=== PATIENT | female | born 1945 | race Asian ===

== ENCOUNTER 2016-12-08 19:37 | Emergency (ER) | payer OTHER ==
[2016-12-08] MEDS ORDERED: ASPIRIN 81 MG CHEWABLE TAB ONE (19:51)
--- NOTE | 2016-12-08 19:51 | CPEKG ---
Heart Rate: 98 RR Interval: 612 P-R Interval: 176 QRSD Interval: 90 QT Interval: 348 QTC Interval: 445 P Henry: 61 QRS Henry: -29 T Wave Henry: 44 EKG Severity - OTHERWISE NORMAL ECG - EKG Impression: SINUS RHYTHM EKG Impression: VENTRICULAR PREMATURE COMPLEX EKG Impression: BORDERLINE LEFT AXIS DEVIATION Electronically Signed By: Rick Porter 08-Dec-2016 22:51:43
[2016-12-08] MEDS ORDERED: ASPIRIN 81 MG CHEWABLE TAB PO ONE (19:55)
[2016-12-08] MEDS ORDERED: NS 500 ML IV ONE (20:14)
--- NOTE | 2016-12-08 20:17 | EDPHY ---
H & P Stated Complaint: CHEST AND BACK PAIN FOR PAST 1 HR AND 1 WEEK Time Seen by Provider: 12/08/16 19:53 - Personal History Current Tetanus/Diphtheria Vaccine: Unsure Current Tetanus Diphtheria and Acellular Pertussis (TDAP): Unsure - Medical/Surgical History Hx Asthma: No Hx Chronic Respiratory Disease: No Hx Diabetes: No Hx Cardiac Disease: No Hx Renal Disease: No Hx Cirrhosis: No Hx Alcoholism: No Hx HIV/AIDS: No Hx Splenectomy or Spleen Trauma: No Other PMH: ACID REFLUX, - Social History Smoking Status: Never smoked Constitutional: Initial Vital Signs Temperature (C) 36.5 C 12/08/16 19:39 Heart Rate 108 H 12/08/16 19:39 Respiratory Rate 18 12/08/16 19:39 Blood Pressure 145/118 H 12/08/16 19:39 O2 Sat (%) 95 12/08/16 19:39 O2 Delivery Mode Room Air Allergies/Adverse Reactions: No Known Allergies Allergy (Unverified 12/08/16 19:43) Home Medications: Medication Instructions Recorded Aspirin [Aspirin 81mg] 81 mg PO DAILY 10/04/11 Atorvastatin Calcium [Lipitor 10 mg PO DAILY 10/04/11 mg] Fish Oil/Dha/Epa 10/04/11 Medical Decision Making ED Course/Re-evaluation: CHIEF COMPLAINT: Abdominal pain, back pain, dizziness HISTORY OF PRESENT ILLNESS: The patient is a 71 y/o female complaining of episodic burning abdominal pain with associated chest and back pain onset 17:00 tonight. She reports intermittent abdominal pain and back pain for the last several weeks as well as dizziness. Since onset tonight her pain has since faded in intensity but is still present. She has a possible history of heart attack or anxiety, it is unclear which. She reports her dizziness is aggravated by reading and she has been evaluated by her pediatric associate for it. She describes extreme room-spinning dizziness when standing in the morning that causes vomiting. REVIEW OF SYSTEMS: A 10 point review of systems was performed and is negative with the exception of the elements mentioned in the history of present illness. PHYSICAL EXAM: General Appearance: Alert, well hydrated, appropriate, and non-toxic appearing. Head: Atraumatic without scalp tenderness or obvious injury Eyes: Pupils equal, round, reactive to light and accommodation, EOMI, no trauma , no injection. Ears: Clear bilaterally, no perforation, normal landmarks Nose: Atraumatic, no rhinorrhea, clear. Throat: There is no erythema or exudates, no lesions, normal tonsils, mucus membranes moist. Neck: Supple, 2+ carotid upstroke, non-tender, no lymphadenopathy. Respiratory: No retractions, no distress, no wheezes, and no accessory muscle use. Lungs are clear to auscultation bilaterally. Cardiovascular: Regular rate and rhythm, no murmurs, rubs, or gallops. Bilateral carotid, radial, dorsalis pedis, and posterior tibial pulses intact. Good capillary refill all extremities. Gastrointestinal: Abdomen is soft, non-tender, non-distended, no masses, no rebound, no guarding, no peritoneal signs. Musculoskeletal: Normal active ROM of all extremities, atraumatic. Neurological: Alert, appropriate, and interactive. The patient has normal DTRs and non-focal cranial nerves, motor, sensory, and cerebellar exam. Skin: No rashes, good turgor, no nodules on palpation. 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 DIAGNOSTICS/PROCEDURES/CRITICAL CARE TIME: The 12 lead EKG was interpreted by myself. EKG shows sinus rhythm rate 98 and PVC. See hard copy and/or "tracemaster" electronic copy for interpretation. Study: MRI of the: Brain Indication: Neurologic Results: MRI scan of the brain was obtained. The results of the study are negative. The study was read by the radiologist, Dr. Ramachandran. I viewed the images myself on the PACS system. DIFFERENTIAL DIAGNOSIS: The differential diagnosis for the patient's chest pain included but was not limited to myocardial ischemia, pulmonary embolus, chest wall pain, pleural inflammation, and pulmonary infectious causes. MEDICAL DECISION MAKING: There is some difficulty understanding the patient due to a strong accent, but it sounds like she is describing room-spinning dizziness in the morning that causes vomiting and abdominal pain and possibly near syncope. She describes several of these events since October, but has only been evaluated by her pediatric associate so far for the dizziness. She has not had a brain MRI recently. Plan for EKG, IV, labs including troponin, and brain MRI. Labs are unremarkable. MRI pending. MRI is negative. Discussed these results with the patient. She will be discharged home with referral to her PCP for follow up. She is comfortable with this plan. Return precautions given. - Data Points Laboratory Results: Laboratory Results 12/08/16 19:50 12/08/16 19:50 12/08/16 19:50 WBC 6.41 10^3/uL (3.80-9.50) RBC 4.71 10^6/uL (4.18-5.33) Hgb 14.0 g/dL (12.6-16.3) Hct 41.4 % (38.0-47.0) MCV 87.9 fL (81.5-99.8) MCH 29.7 pg (27.9-34.1) MCHC 33.8 g/dL (32.4-36.7) RDW 13.9 % (11.5-15.2) Plt Count 262 10^3/uL (150-400) MPV 9.3 fL (8.7-11.7) Neut % (Auto) 59.5 % (39.3-74.2) Lymph % (Auto) 29.8 % (15.0-45.0) [place] % (Auto) 8.1 % (4.5-13.0) Eos % (Auto) 2.0 % (0.6-7.6) Baso % (Auto) 0.3 % (0.3-1.7) Nucleat RBC Rel Count 0.0 % (0.0-0.2) Absolute Neuts (auto) 3.81 10^3/uL (1.70-6.50) Absolute Lymphs (auto) 1.91 10^3/uL (1.00-3.00) Absolute Monos (auto) 0.52 10^3/uL (0.30-0.80) Absolute Eos (auto) 0.13 10^3/uL (0.03-0.40) Absolute Basos (auto) 0.02 10^3/uL (0.02-0.10) Absolute Nucleated RBC 0.00 10^3/uL (0-0.01) Immature Gran % 0.3 % (0.0-1.1) Immature Gran # 0.02 10^3/uL (0.00-0.10) Sodium 141 mEq/L (134-144) Potassium 3.8 mEq/L (3.5-5.2) Chloride 106 mEq/L (97-110) Carbon Dioxide 22 mEq/l (22-31) Anion Gap 13 mEq/L (8-16) BUN 18 mg/dL (7-23) Creatinine 0.7 mg/dL (0.6-1.0) Estimated GFR > 60 Glucose 124 H mg/dL (70-100) Calcium 9.4 mg/dL (8.5-10.4) Total Bilirubin 0.3 mg/dL (0.1-1.4) Conjugated Bilirubin 0.1 mg/dL (0.0-0.5) Unconjugated Bilirubin 0.2 mg/dL (0.0-1.1) AST 23 IU/L (14-46) ALT 26 IU/L (9-52) Alkaline Phosphatase 53 IU/L (38-126) Troponin I < 0.012 ng/mL (0-0.034) Total Protein 7.5 g/dL (6.3-8.2) Albumin 4.1 g/dL (3.5-5.0) Lipase 74.0 IU/L (23-300) Medications Given: Discontinued Medications Aspirin (Aspirin) 243 mg PO EDNOW ONE Stop: 12/08/16 19:56 Last Admin: 12/08/16 19:57 Dose: 243 mg Sodium Chloride (Ns) 500 mls @ 0 mls/hr IV ONCE ONE PRN Reason: As Directed Stop: 12/08/16 20:15 Last Admin: 12/08/16 21:10 Dose: 500 mls Departure - Departure Disposition: Home, Routine, Self-Care Clinical Impression: Dizziness Condition: Good Instructions: Dizziness (ED) Additional Instructions: Follow up with your primary care provider on Sunday to discuss your symptoms. Your brain MRI and EKG here were normal. Return to the ED for worsening of condition. Referrals: SHEILA SAHA [Primary Care Provider] - As per Instructions Report Scribed for: Rick Porter Report Scribed by: Brianda Barr Date of Report: 12/08/16 Time of Report: 20:57
[2016-12-08 20:24] LABS: % IMMATURE GRANULYOCYTES 0.3 % (0.0-1.1); ABSOLUTE IMMATURE GRANULOCYTES 0.02 10^3/uL (0.00-0.10); ADD DIFF? NO; ADD MORPH? NO; ADD SCAN? NO; ATYPICAL LYMPHOCYTE FLAG 10 (0-99); FRAGMENT RBC FLAG 0 (0-99); HEMATOCRIT 41.4 % (38.0-47.0); LEFT SHIFT FLG 0 (0-99); LIPEMIA HEMOLYSIS FLAG 90 (0-99); MEAN CELL HEMOGLOBIN 29.7 pg (27.9-34.1); MEAN CELL HEMOGLOBIN CONCENTR. 33.8 g/dL (32.4-36.7); MEAN CELL VOLUME 87.9 fL (81.5-99.8); MEAN PLATELET VOLUME 9.3 fL (8.7-11.7); PLATELET CLUMPS FLAG 0 (0-99); PLATELET COUNT 262 10^3/uL (150-400); RED BLOOD CELL COUNT 4.71 10^6/uL (4.18-5.33); RED CELL DISTRIBUTION WIDTH 13.9 % (11.5-15.2)
[2016-12-08 20:29] LABS: ALANINE AMINOTRANSFERASE 26 IU/L (9-52); ALBUMIN 4.1 g/dL (3.5-5.0); ALKALINE PHOSPHATASE 53 IU/L (38-126); ANION GAP 13 mEq/L (8-16); ASPARTATE AMINOTRANSFERASE 23 IU/L (14-46); BILIRUBIN,TOTAL 0.3 mg/dL (0.1-1.4); BILIRUBIN-CONJUGATED 0.1 mg/dL (0.0-0.5); BILIRUBIN-UNCONJUGATED 0.2 mg/dL (0.0-1.1); CALCIUM 9.4 mg/dL (8.5-10.4); CARBON DIOXIDE 22 mEq/l (22-31); CHLORIDE 106 mEq/L (97-110); CREATININE 0.7 mg/dL (0.6-1.0); GLOMERULAR FILTRATION RATE > 60; GLUCOSE 124 mg/dL (70-100); POTASSIUM 3.8 mEq/L (3.5-5.2); SODIUM 141 mEq/L (134-144); TOTAL PROTEIN 7.5 g/dL (6.3-8.2)
[2016-12-08 20:40] LABS: TROPONIN I < 0.012 ng/mL (0-0.034)
--- NOTE | 2016-12-08 21:08 | DX ---
PA and Lateral Chest History: Chest pain in a 71-year-old female with a history of cardiac issues. Comparison to the previ ous PA and lateral chest October 04, 2011. Findings: The heart and mediastinum are normal. Pulmonary vascularity is normal. The lungs are clear. There is no pleural fluid. A pneumothorax is not identified. There is been no significant change fro m the prior study. Impression: Stable chest negative for acute abnormality.
[2016-12-08 21:11] VITALS: O2SAT 96
--- NOTE | 2016-12-08 22:37 | MR ---
MRI of the Brain (Without Contrast) Clinical Indication: Dizziness and syncope in a 71-year-old female. Technique: T1-weighted images were acquired axially and sagittally from the foramen magnum to the ve rtex. Axial FLAIR, susceptibility-weighted, fast T2-weighted, and diffusion-weighted axial images we re obtained, without contrast. Findings: No masses, areas of hemorrhage, or extraaxial fluid collections are identified. There is mild age-appropriate generalized atrophy seen, with prominence of the cortical sulci, as well as the ventricles. Midline structures are in normal positions. Areas of T2 hyperintensity are noted involv ing periventricular and subcortical white matter regions bilaterally, presumably reflecting small ves moses ischemic disease. Diffusion-weighted sequence demonstrates no acute infarct. The craniovertebra l junction is normal. Degenerative changes are seen involving the C1-C2 articulation, without cervic al cord compression. Cerebellar tonsils are in normal position. Pituitary gland is normal. The cer ebellopontine angles are normal. Normal signal flow void in the superior sagittal sinus, basilar art j luis, and bilateral internal carotid arteries indicating patency. Paranasal sinuses and mastoid air c ells are clear. Impressions 1. Mild age-appropriate atrophy and probable small vessel ischemic disease are noted. 2. Negative for restricted diffusion to suggest acute cortical ischemia. 3. See above report for additional findings. A preliminary report was called to Dr. Rick Porter at 2225 hours in the Emergency Department.
[2016-12-08 22:40] VITALS: BP 111/62; PULSE 95; RESP 20; TEMP 98.1
== END 2016-12-08 22:51 | disposition home or self-care (01) ==
DX: R42 Dizziness and giddiness (principal); Z79.82 Long term (current) use of aspirin

== ENCOUNTER → 2017-09-13 | Outpatient (CLI) | payer OTHER | LOC: FIMAGING 12:27 | PROVIDERS: ATTEND Family Medicine | DX: Z12.31 Encounter for screening mammogram for malignant neoplasm of breast (principal) | CPT/HCPCS: G0202 ==

== ENCOUNTER → 2018-10-03 | Outpatient (CLI) | payer OTHER | LOC: FIMAGING 11:28 | PROVIDERS: ATTEND Family Medicine | DX: Z12.31 Encounter for screening mammogram for malignant neoplasm of breast (principal) ==